=== PATIENT | female | born 1955 | race Caucasian/White ===

== ENCOUNTER → 2019-02-25 | Outpatient (CLI) | payer MEDICARE ==
--- NOTE | 2019-02-26 07:15 | BD ---
EXAMINATION TYPE: Axial Bone Density DATE OF EXAM: 02/25/2019 COMPARISON: 2013 CLINICAL HISTORY: N 95.1 Height: 5 FT 1/2 IN Weight: 166 FRAX RISK QUESTIONS: History of Fracture in Adulthood: YES Secondary Osteoporosis: RISK FACTORS HISTORY OF: Surgery to Spine/Hip(right/left)/Wrist (right/left): C SPINE When: 2017 Family History of Osteoporosis: MOTHER Postmenopausal woman: AGE 51 Lost more than 2 inches in height since high school: YES MEDICATIONS: Additional History: LISINOPRIL, HYDROCHLOROTHIAZIDE, ALLERGY MEDS,VIT D EXAM MEASUREMENTS: Bone mineral densitometry was performed using the BCNX System. Bone mineral density as measured about the Lumbar spine is: ----- L1-L4(G/cm2): 0.877 T Score Values are as follows: ----- L2: -2.9 ----- L3: -1.9 ----- L4: -2.9 ----- L1-L4: -2.5 Bone mineral density has: INCREASED 2.8 % since study of: 2013 Bone mineral density about the R hip (g/cm2): 0.779 Bone mineral density about the L hip (g/cm2): 0.729 T Score values are as follows: -----R Neck: -1.9 -----L Neck: -2.3 -----R Total: -2.0 -----L Total: -2.3 Bone mineral density has: DECREASED -5.7 % since study of: 2013 IMPRESSION: Osteoporosis (T Score less than -2.5) with regards to the lumbar spine. There is increased fracture risk and therapy is usually indicated based on age. Re-Screen 1-2 years. NOTE: T-SCORE=SD OF THE YOUNG ADULT MEAN.
--- NOTE | 2019-02-26 09:46 | MM ---
Reason for exam: screening (asymptomatic). Last mammogram was performed 2 years ago. History: Patient is postmenopausal. Family history of breast cancer in sister at age 48, breast cancer in aunt at age 72, and breast cancer in maternal grandmother at age 68. Excisional biopsy of the left breast, 2001. Physical Findings: A clinical breast exam by your physician is recommended on an annual basis and results should be correlated with mammographic findings. MG 3D Screening Mammo W/Cad Bilateral CC and MLO view(s) were taken. Prior study comparison: February 14, 2017, mammogram, performed at [facility]. February 05, 2016, mammogram, performed at [facility]. December 30, 2013, bilateral MG screening mammo w CAD. There are scattered fibroglandular densities. There is chronic nodularity in the left breast medially. No significant changes when compared with prior studies. ASSESSMENT: Negative, BI-RAD 1 RECOMMENDATION: Routine screening mammogram of both breasts in 1 year.
== END | disposition home or self-care (01) ==
LOC: RADMAMWWP 07:28
PROVIDERS: ATTEND Family Medicine
DX: Z12.31 Encounter for screening mammogram for malignant neoplasm of breast (principal); M81.0 Age-related osteoporosis without current pathological fracture
CPT/HCPCS: 77063; 77067; 77080